=== PATIENT | female | born 1965 | race American Indian/Alaskan Native ===

== ENCOUNTER 2018-06-06 13:20 | Emergency (ER) | payer OTHER ==
[2018-06-06] MEDS ORDERED: CATAPRES ONE (14:19)
[2018-06-06] MEDS ORDERED: CATAPRES PO ONE (14:23)
[2018-06-06 14:53] LABS: Basophils % (Auto) 0.8 % (0.0-1.8); Eosinophils # (Auto) 0.1 K/mm3 (0.0-0.4); Eosinophils % (Auto) 1.9 % (0.0-4.3); Hematocrit 42.2 % (30.3-42.9); Hemoglobin 13.6 gm/dl (10.1-14.3); Lymphocytes # (Auto) 2.2 K/mm3 (1.2-5.4); Lymphocytes % (Auto) 43.7 % (13.4-35.0); Mean Corpuscular HGB Conc 32 % (30-34); Mean Corpuscular Hemoglobin 27 pg (28-32); Mean Corpuscular Volume 84 fl (79-97); Monocytes # (Auto) 0.4 K/mm3 (0.0-0.8); Platelet Count 218 K/mm3 (140-440); Red Blood Count 5.02 M/mm3 (3.65-5.03); Red Cell Distribution Width 14.1 % (13.2-15.2)
[2018-06-06 15:13] LABS: Creatine Kinase MB 4.1 ng/mL (0.0-4.0)
[2018-06-06 15:14] LABS: BUN/Creatinine Ratio 11; Blood Urea Nitrogen 9 mg/dL (7-17); Calcium 9.7 mg/dL (8.4-10.2); Hemolysis Index 15
[2018-06-06] MEDS ORDERED: APRESOLINE IV ONE (19:58)
[2018-06-06] MEDS ORDERED: NACL 0.9% 1000 ML 1,000 ML IV ONE (20:12)
[2018-06-06] MEDS ORDERED: NORVASC PO ONE (21:13)
--- NOTE | 2018-06-06 21:54 | Emergency Department Report ---
ED General Adult HPI - General Chief complaint: High BP Stated complaint: HIGH BP Time Seen by Provider: 06/06/18 20:11 Source: patient Mode of arrival: Ambulatory Limitations: No Limitations - History of Present Illness Initial comments: Patient states for the past couple of days she's been having substernal chest pain that is intermittent, nonradiating, nonexertional, nonpleuritic. He feels a tightness. She went to give blood today and they noticed that her blood pressure is high. So, she was sent to the ER for evaluation. According to the patient, she had a remote history of high blood pressure, but is not supposed to be on any medication at this time. Patient does not have a family physician. Her blood pressure is high at time of presentation. Patient was given clonidine and 20 mg IV hydralazine. After lowering of her blood pressure, patient denied any chest pain. Severity scale (0 -10): 4 - Related Data Previous Rx's Medication Instructions Recorded Last Taken Type amLODIPine [Norvasc] 10 mg PO DAILY #21 tab 06/06/18 Unknown Rx Allergies Allergy/AdvReac Type Severity Reaction Status Date / Time No Known Allergies Allergy Unverified 06/06/18 14:18 ED Review of Systems ROS: Stated complaint: HIGH BP Other details as noted in HPI Comment: All other systems reviewed and negative Cardiovascular: chest pain ED Past Medical Hx - Past Medical History Previous Medical History?: No - Surgical History Past Surgical History?: No - Social History Smoking Status: Never Smoker Substance Use Type: None - Medications Home Medications: Home Medications Medication Instructions Recorded Confirmed Last Taken Type amLODIPine [Norvasc] 10 mg PO DAILY #21 tab 06/06/18 Unknown Rx ED Physical Exam - General Limitations: No Limitations General appearance: alert, in no apparent distress - Head Head exam: Present: atraumatic, normocephalic - Eye Eye exam: Present: normal appearance - ENT ENT exam: Present: mucous membranes moist - Neck Neck exam: Present: normal inspection - Respiratory Respiratory exam: Present: normal lung sounds bilaterally. Absent: respiratory distress - Cardiovascular Cardiovascular Exam: Present: regular rate, normal rhythm. Absent: systolic murmur, diastolic murmur, rubs, gallop - GI/Abdominal GI/Abdominal exam: Present: soft, normal bowel sounds. Absent: tenderness - Extremities Exam Extremities exam: Present: normal inspection - Back Exam Back exam: Present: normal inspection - Neurological Exam Neurological exam: Present: alert, oriented X3 - Psychiatric Psychiatric exam: Present: normal affect, normal mood - Skin Skin exam: Present: warm, dry, intact, normal color. Absent: rash ED Course Vital Signs 06/06/18 06/06/18 06/06/18 14:14 14:25 17:06 Temperature 98.3 F Pulse Rate 82 82 Respiratory 22 Rate Blood Pressure 214/108 214/108 Blood Pressure 192/98 [Right] O2 Sat by Pulse 97 Oximetry 06/06/18 06/06/18 06/06/18 19:51 20:10 20:49 Temperature Pulse Rate 64 64 78 Respiratory 18 18 Rate Blood Pressure 238/107 Blood Pressure 238/107 124/68 [Right] O2 Sat by Pulse 100 96 Oximetry 06/06/18 06/06/18 06/06/18 21:43 22:11 22:51 Temperature Pulse Rate 72 72 Respiratory 18 Rate Blood Pressure 155/85 Blood Pressure 155/85 [Right] O2 Sat by Pulse 96 99 Oximetry ED Medical Decision Making - Lab Data Result diagrams: 06/06/18 14:32 06/06/18 14:32 - EKG Data -: EKG Interpreted by Hi EKG shows normal: sinus rhythm, axis, intervals, QRS complexes, ST-T waves Rate: normal - EKG Data When compared to previous EKG there are: no significant change Interpretation: no acute changes - Medical Decision Making 53-year-old female with no significant past medical history presents to the ER with high blood pressure and chest pain. + Significant for systolic blood pressure in the 220s at time of presentation. It was lowered with clonidine and IV hydralazine. Patient's symptoms resolved with normalization of her blood pressure. Lab work shows mild elevation of CK at 354. She was given 1L IVNS. Troponins negative 2. EKG is nonischemic. Low risk heart score. Patient will be started on 10 mg Norvasc daily. - Differential Diagnosis hypertensive urgency versus emergency, ACS, electrolyte abnormalities Critical Care Time: Yes Critical care attestation.: If time is entered above; I have spent that time in minutes in the direct care of this critically ill patient, excluding procedure time. Critical Care Time: 32 ED Disposition Clinical Impression: Chest pain, Hypertension Disposition: - TO HOME OR SELFCARE Is pt being admited?: No Does the pt Need Aspirin: No Condition: Stable Instructions: Chest Pain (ED), Hypertension (ED) Additional Instructions: Please follow up with the [facility] medical [facility] for further management and evaluation of your blood pressure and chest pain. Prescriptions: amLODIPine [Norvasc] 10 mg PO DAILY #21 tab Referrals: [facility] [Outside] - 3-5 Days
[2018-06-06 22:12] VITALS: BP 155/85
--- NOTE | 2018-06-06 22:48 | XRay Report ---
FINAL REPORT PROCEDURE: XR CHEST ROUTINE 2V TECHNIQUE: PA and lateral chest radiographs were obtained. CPT 49597 HISTORY: chest pain COMPARISON: No prior studies are available for comparison. FINDINGS: Heart: Normal. Mediastinum/Vessels: Normal. Lungs/Pleural space: No infiltrate, effusion, or pneumothorax. Bony thorax: No acute osseous abnormality. Other: IMPRESSION: No radiographic evidence of acute abnormality.
== END 2018-06-06 23:27 | disposition home or self-care (01) ==
LOC: ED 13:20
DX: R07.9 Chest pain, unspecified (principal); I10 Essential (primary) hypertension
CPT/HCPCS: 36415; 71046; 80048; 82550; 82553; 84484; 85025; 93005; 93010; 96374; 99291; J0360; J7030; 96361